=== PATIENT | male | born 2000 | race Caucasian/White ===

== ENCOUNTER 2020-07-17 08:08 | Observation (INO) ==
[2020-07-17] MEDS ORDERED: KETOROLAC TROMETHAMINE 15 MG/ML VIAL IV STA (08:38)
[2020-07-17] MEDS ORDERED: ONDANSETRON INJ 2 MG/ML 2 ML VIAL IV STA (08:38)
--- NOTE | 2020-07-17 08:42 | Emergency Department Note ---
Impression & Plan Acute appendicitis with localized peritonitis ED Provider Note CHIEF COMPLAINT: Abdominal pain, nausea HISTORY OF PRESENTING ILLNESS: This is a 19-year-old male who presents to the emergency department by private vehicle with complaint of diffuse mid abdominal pain and nausea that started this morning about 6:30 AM when he woke up, he states the pain woke him up out of sleep. He states the pain is constant, crampy in nature, centered in the middle of the abdomen but radiates outward to both sides throughout the abdomen, and he rates the pain 8/10. He has not tried any medications for the pain. He has had persistent nausea and feels like he might vomit, but has not vomited. He denies any diarrhea and had a normal bowel movement this morning. He denies any urinary symptoms. He states that he was feeling fine yesterday and did not have any symptoms of abdominal pain or nausea and had a normal appetite yesterday. He denies eating or drinking anything unusual and denies any sick contacts. He notes that he had a CT scan when he was in elementary school that showed that his appendix was not in the normal position, he is concerned he may have appendicitis because of this. He denies any history of abdominal surgeries or intestinal problems. He did test positive for COVID-19 over 3 weeks ago, he states his only symptoms were fever and sore throat for about 1 day and had no other symptoms. He feels that he is fully recovered from this. REVIEW OF SYSTEMS: A complete 10 point review of systems was reviewed with the patient with pertinent positives and negatives as per history of present illness. All else were negative. PAST MEDICAL HISTORY: No significant past medical or surgical history SOCIAL HISTORY: Lives at home, he denies tobacco use, alcohol or recreational drug use ALLERGIES: No known allergies PHYSICAL EXAM: CONSTITUTIONAL: Pleasant and cooperative. Nontoxic-appearing and in no acute distress. Well appearing and well nourished. HEENT: Normocephalic, atraumatic. NECK: Supple, full active range of motion without discomfort. RESPIRATORY: Clear to auscultation bilaterally with no wheezing, crackles, rhonchi or stridor. Equal expansion bilaterally. CARDIOVASCULAR: Regular rate and rhythm with no murmurs, rubs or gallops. Normal peripheral perfusion. No edema. GASTROINTESTINAL: Diffuse tenderness to palpation throughout the abdomen, most tender around the periumbilical region, no rebound tenderness or guarding. The abdomen is soft and nondistended. No palpable masses or HSM. Bowel sounds present in all quadrants. No CVA tenderness bilaterally. MUSCULOSKELETAL: Full range of motion of all joints without discomfort. INTEGUMENTARY: No rash or other significant dermatologic conditions noted. NEUROLOGIC: Alert and oriented X 4 with normal affect. Normal strength and sensation in all 4 extremities. Normal speech. Normal gait observed. ED COURSE AND MEDICAL DECISION MAKING: CC: Patient presenting with complaint of abdominal pain and nausea DIFFERENTIAL DIAGNOSIS: Includes, but not limited to appendicitis, cholecystitis, cholelithiasis, pancreatitis, GERD, gastritis, gastroenteritis, PUD, enteric adenitis, colitis, small bowel obstruction, among others. INTERPRETATION OF LABS: No leukocytosis, no anemia, normal platelets, no significant electrolyte abnormalities, normal renal function, normal liver enzymes and lipase. Urinalysis negative. IMAGING: CT SCAN OF THE ABDOMEN AND PELVIS WITH IV CONTRAST CLINICAL HISTORY: Generalized abdominal pain. Nausea. COMPARISON STUDY: Abdominal CT dated 07/15/2011. TECHNIQUE: Following the IV administration of 93 cc of Optiray 320, CT scan of the abdomen and pelvis is performed from the lung bases to the proximal femora. Images are reviewed in the axial, sagittal, and coronal planes. IV contrast was administered without complication. A dose lowering technique was utilized adhering to the principles of ALARA. CT DOSE: 272.46 mGy.cm FINDINGS: Lung bases: The heart is normal in size and without pericardial effusion. The lung bases are clear. Liver: The contrast-enhanced liver is normal in size, contour, and attenuation. There is no intrahepatic biliary ductal dilatation. The hepatic veins and portal veins are patent. Gallbladder: Unremarkable. Spleen: Normal in size and attenuation. Pancreas: Unremarkable. Adrenal glands: Unremarkable. Kidneys: The contrast enhanced kidneys are normal in size and without hydronephrosis. The kidneys enhance symmetrically. Small peripelvic cysts are noted in the right upper pole. This is similar to previous. Abdominal vasculature: The abdominal aorta is normal in course and caliber. Bowel: The small bowel and colon are normal in course and caliber. The appendix is distended and fluid-filled, measuring 10 mm in diameter. This is best seen on image #334. The appendiceal wall is thickened and hyperemic and there is periappendiceal inflammation and fluid. Findings are consistent with acute appendicitis. There is no organized fluid collection to suggest abscess. Peritoneum: There is no intraperitoneal free air or abdominal ascites. Lymphadenopathy: None. Pelvic viscera: The bladder, prostate, and seminal vesicles are normal in appearance. There is a small one of free fluid in the pelvis. Skeletal structures: No lytic or blastic lesions are seen. IMPRESSION: 1. Findings are consistent with acute appendicitis. 2. There is no evidence of abscess or perforation. 3. A small volume of free fluid in the pelvis is likely reactive. 4. Additional findings as above. MEDICATION RECONCILIATION: I attest that I have personally reviewed the patient's current medication list. INITIAL VITAL SIGNS REVIEW: I reviewed the patient's initial vital signs and interpret them as follows: T: Afebrile; BP: Normotensive; HR: Mildly tachycardic; RR: Within normal limits; Pulse Ox: Within normal limits on room air. MDM SUMMARY: Patient was evaluated at bedside, history and physical exam performed. Patient is alert and oriented, in no acute distress, resting calmly in the stretcher. Afebrile and nontoxic-appearing. Patient does appear to be uncomfortable from pain. He complains of nausea but is not actively vomiting. The abdomen is diffusely tender to palpation throughout, but no acute abdomen. Most tender in the periumbilical region. Orders were placed for labs, UA, IV fluid bolus for hydration as precaution, IV Toradol for pain, IV Zofran for nausea, CT abdomen/pelvis with IV contrast to evaluate for abdominal pain. Patient discussed with Dr. Wren, who agrees with my assessment, plan, and disposition. Labs and imaging reviewed as above, labs are unremarkable, no leukocytosis, renal and liver function normal. No UTI. CT imaging reviewed as above, noting findings consistent with acute appendicitis with no evidence of abscess or perforation. I spoke on the phone with Dr. Bedoya, general surgery, who agrees to evaluate the patient for surgery. Patient reassessed multiple times throughout ED stay, he has remained hemodynamically stable and afebrile and reports his pain is improved after the Toradol. The patient was updated on all results and plan for his probable surgery today, all questions were answered to the best of my ability and the patient was agreeable to this plan. The patient was stable at time of admission/transfer to OR. The chart was completed utilizing [employer] voice recognition software. Grammatical errors, random word insertions, pronoun errors, and incomplete sentences are an occasional consequence of this system due to software limitations, ambient noise, and hardware issues. Any formal questions or concer ns about the content, text, or information contained within the body of this dictation should be directly addressed to the nurse practitioner for clarification. Past Med/Surg History Medical History (Updated 07/17/20 @ 15:07 by DIONICIO Loving) Acute appendicitis with localized peritonitis Social History Smoking Status: Never smoker Preferred Language: Greenlandic Feels Safe at Home: Yes Allergies Allergies Allergy/AdvReac Type Severity Reaction Status Date / Time No Known Allergies Allergy Unverified 07/17/20 09:05 Home Meds Home Medications Medication Instructions Recorded Confirmed No Known Home Medications 07/17/20 07/17/20 Results & Data (ED) Vital Signs Vital Signs - 24 hr 07/17/20 08:11 07/17/20 09:12 07/17/20 11:16 Temperature 36.3 C L Temperature Source Temporal Artery Scan Pulse Rate 101 H Pulse Rate [Finger] 64 Respiratory Rate 18 14 Respiratory Effort / Characteristics Spontaneous Non-Labored Spontaneous Respiratory Depth Normal Normal Respiratory Pattern Regular Blood Pressure 123/70 Blood Pressure [Right Arm] 113/50 L Blood Pressure Mean 87 Blood Pressure Mean [Right Arm] 71 Blood Pressure Position Sitting Blood Pressure Position [Right Arm] Sitting Pulse Oximetry 99 99 99 Oxygen Delivery Method Room Air Room Air Room Air Sepsis Recent Fever Within 48 Hours No Sepsis New/Unexplained Change in Mental Status N/A Sepsis Action Taken by Nursing No Action Required 07/17/20 13:00 07/17/20 13:58 Temperature Temperature Source Pulse Rate Pulse Rate [Finger] 54 L Respiratory Rate 14 Respiratory Effort / Characteristics Respiratory Depth Respiratory Pattern Blood Pressure Blood Pressure [Right Arm] 106/54 L Blood Pressure Mean Blood Pressure Mean [Right Arm] 71 Blood Pressure Position Blood Pressure Position [Right Arm] Pulse Oximetry 99 Oxygen Delivery Method Room Air Room Air Sepsis Recent Fever Within 48 Hours Sepsis New/Unexplained Change in Mental Status Sepsis Action Taken by Nursing Laboratory Data Result diagrams: 07/17/20 09:07 07/17/20 09:07 Lab Results 07/17/20 07/17/20 07/17/20 Range/Units 09:07 09:07 09:07 WBC 8.46 (4.8-10.8) K/uL RBC 5.18 (4.7-6.1) M/uL Hgb 15.2 (14.0-18.0) g/dL Hct 43.7 (42-52) % MCV 84.4 (80-100) fL MCH 29.3 (25-34) pg MCHC 34.8 (32-36) g/dL RDW Std Deviation 37.2 (36.4-46.3) fL RDW Coeff of Bettina 12.2 (11.5-14.5) % Plt Count 183 (130-400) K/uL MPV 11.2 H (7.4-10.4) fL Immature Gran % (Auto) 0.1 % Neut % (Auto) 74.2 % Lymph % (Auto) 15.5 % [place] % (Auto) 9.0 % Eos % (Auto) 0.8 % Baso % (Auto) 0.4 % Neut # (Auto) 6.28 (1.4-6.5) K/uL Lymph # (Auto) 1.31 (1.2-3.4) K/uL [place] # (Auto) 0.76 H (0.11-0.59) K/uL Eos # (Auto) 0.07 (0-0.5) K/uL Baso # (Auto) 0.03 (0-0.2) K/uL Immature Gran # (Auto) 0.01 (0.00-0.02) K/uL Sodium 141 (136-145) mmol/L Potassium 3.9 (3.5-5.1) mmol/L Chloride 106 (98-107) mmol/L Carbon Dioxide 28 (21-32) mmol/L Anion Gap 8.0 (3-11) BUN 13 (7-18) mg/dl Creatinine 0.90 (0.6-1.4) mg/dl Est Cr Clr Drug Dosing 125.1 ml/min Est GFR ( Amer) 143.0 Est GFR (Non-Af Amer) 123.4 BUN/Creatinine Ratio 14.5 (10-20) Glucose 81 (70-99) mg/dl Calcium 9.6 (8.5-10.1) mg/dl Total Bilirubin 0.7 (0.2-1) mg/dl AST 23 (15-37) U/L ALT 21 (12-78) U/L Alkaline Phosphatase 70 (45-117) U/L Total Protein 7.7 (6.4-8.2) gm/dl Albumin 4.4 (3.4-5.0) gm/dl Globulin 3.3 (2.5-4.0) gm/dl Albumin/Globulin Ratio 1.3 (0.9-2) Lipase 97 (73-393) U/L Urine Color Yellow Urine Appearance Clear (Clear) Urine pH 7.0 (4.5-7.5) Ur Specific [place] 1.018 (1.000-1.030) Urine Protein Negative (Negative) Urine Glucose (UA) Negative (Negative) Urine Ketones Negative (Negative) Urine Blood Negative (Negative) Urine Nitrite Negative (Negative) Urine Bilirubin Negative (Negative) Urine Urobilinogen Negative (Negative) Ur Leukocyte Esterase Negative (Negative) Administered Medications Discontinued Medications Sodium Chloride (Nss 1000ml) 1,000 mls @ 999 mls/hr IV .Q1H1M RUTHY Stop: 07/17/20 09:45 Last Infusion: 07/17/20 10:07 Dose: 0 mls/hr Documented by: [id number] Admin: 07/17/20 09:06 Dose: 999 mls/hr Documented by: [id number] Cefazolin Sodium (Ancef 2000mg) 2,000 mg in 15 mls @ 3.75 mls/min IV ONCE ONE Stop: 07/17/20 15:05 Last Admin: 07/17/20 14:50 Dose: 3.75 mls/min Documented by: [id number] Ioversol (Ioversol 100ml) 93 ml IV ONCE ONE Stop: 07/17/20 09:37 Last Admin: 07/17/20 09:36 Dose: 93 ml Documented by: [id number] Ketorolac Tromethamine (Ketorolac Tromethamine 15 Mg/Ml Vial) 15 mg IV NOW STA Stop: 07/17/20 08:39 Last Admin: 07/17/20 09:06 Dose: 15 mg Documented by: [id number] Ondansetron HCl (Ondansetron Inj 2 Mg/Ml 2 Ml Vial) 4 mg IV NOW STA Stop: 07/17/20 08:39 Last Admin: 07/17/20 09:06 Dose: 4 mg Documented by: [id number] Discharge Plan Visit Data Chief Complaint: Abdominal Pain Stated Complaint: ABD PAIN,VOMITING ED Provider: Mishock,Christopher ED Midlevel Provider: Cheyenne Mchugh Discharge Problem: Acute appendicitis with localized peritonitis Patient Disposition: Admitted As Inpatient Condition: Good Discharge Instructions Interventions: ED Discharge Assessment Last Done: 07/17/20 13:58 Discharge Problem: Acute appendicitis with localized peritonitis Qualifiers: Appendicitis gangrene presence: unspecified whether gangrene present Appendicitis perforation presence: without perforation Appendicitis abscess presence: without abscess Qualified Code(s): K35.30 - Acute appendicitis with localized peritonitis, without perforation or gangrene
[2020-07-17] MEDS ORDERED: SODIUM CHLORIDE 0.9% 1000ML 1,000 ML IV SCH (08:45)
[2020-07-17 09:18] LABS: Appearance Urine Clear (Clear); Basophils # (auto) 0.03 K/uL (0-0.2); Basophils % (auto) 0.4 %; Bilirubin Urine Negative (Negative); Blood Urine Negative (Negative); Color Urine Yellow; Eosinophils # (auto) 0.07 K/uL (0-0.5); Eosinophils % (auto) 0.8 %; Glucose Urine UA Negative (Negative); Hematocrit (blood only) 43.7 % (42-52); Hemoglobin 15.2 g/dL (14.0-18.0); Immature Granulocytes # (auto) 0.01 K/uL (0.00-0.02); Immature Granulocytes % (auto) 0.1 %; Ketones Urine Negative (Negative); Leukocyte Esterase Urine Negative (Negative); Lymphocytes # (auto) 1.31 K/uL (1.2-3.4); Lymphocytes % (auto) 15.5 %; Mean Corpuscular Hemoglobin 29.3 pg (25-34); Mean Corpuscular Hgb Conc 34.8 g/dL (32-36); Mean Corpuscular Volume 84.4 fL (80-100); Mean Platelet Volume 11.2 fL (7.4-10.4); Monocytes # (auto) 0.76 K/uL (0.11-0.59); Neutrophils # (auto) 6.28 K/uL (1.4-6.5); Neutrophils % (auto) 74.2 %; Nitrite Urine Negative (Negative); Platelet Count 183 K/uL (130-400); Protein Urine Negative (Negative); RDW Coefficient of Variation 12.2 % (11.5-14.5); RDW Standard Deviation 37.2 fL (36.4-46.3); Red Blood Count 5.18 M/uL (4.7-6.1); Specific Gravity Urine 1.018 (1.000-1.030); Urobilinogen Urine Negative (Negative); White Blood Count 8.46 K/uL (4.8-10.8)
[2020-07-17 09:34] LABS: Albumin Level 4.4 gm/dl (3.4-5.0); BUN Creatinine Ratio 14.5 (10-20); Calcium 9.6 mg/dl (8.5-10.1); Creatinine Clr Calc Pharmacy 125.1 ml/min; Est GFR (Non-African American) 123.4; Potassium 3.9 mmol/L (3.5-5.1)
[2020-07-17] MEDS ORDERED: IOVERSOL 100ml IV ONE (09:36)
[2020-07-17 09:37] LABS: Albumin Globulin Ratio 1.3 (0.9-2); Bilirubin,Total 0.7 mg/dl (0.2-1); Globulin 3.3 gm/dl (2.5-4.0); Total Protein 7.7 gm/dl (6.4-8.2)
--- NOTE | 2020-07-17 11:06 | CT Scan Report ---
CT SCAN OF THE ABDOMEN AND PELVIS WITH IV CONTRAST CLINICAL HISTORY: Generalized abdominal pain. Nausea. COMPARISON STUDY: Abdominal CT dated 07/15/2011. TECHNIQUE: Following the IV administration of 93 cc of Optiray 320, CT scan of the abdomen and pelvi s is performed from the lung bases to the proximal femora. Images are reviewed in the axial, sagittal , and coronal planes. IV contrast was administered without complication. A dose lowering technique wa s utilized adhering to the principles of ALARA. CT DOSE: 272.46 mGy.cm FINDINGS: Lung bases: The heart is normal in size and without pericardial effusion. The lung bases are clear. Liver: The contrast-enhanced liver is normal in size, contour, and attenuation. There is no intrahepa tic biliary ductal dilatation. The hepatic veins and portal veins are patent. Gallbladder: Unremarkable. Spleen: Normal in size and attenuation. Pancreas: Unremarkable. Adrenal glands: Unremarkable. Kidneys: The contrast enhanced kidneys are normal in size and without hydronephrosis. The kidneys enh ance symmetrically. Small peripelvic cysts are noted in the right upper pole. This is similar to prev ious. Abdominal vasculature: The abdominal aorta is normal in course and caliber. Bowel: The small bowel and colon are normal in course and caliber. The appendix is distended and flui d-filled, measuring 10 mm in diameter. This is best seen on image #334. The appendiceal wall is thick ened and hyperemic and there is periappendiceal inflammation and fluid. Findings are consistent with acute appendicitis. There is no organized fluid collection to suggest abscess. Peritoneum: There is no intraperitoneal free air or abdominal ascites. Lymphadenopathy: None. Pelvic viscera: The bladder, prostate, and seminal vesicles are normal in appearance. There is a smal l one of free fluid in the pelvis. Skeletal structures: No lytic or blastic lesions are seen. IMPRESSION: 1. Findings are consistent with acute appendicitis. 2. There is no evidence of abscess or perforation. 3. A small volume of free fluid in the pelvis is likely reactive. 4. Additional findings as above. ACT 112: Positive. There are findings on this exam that require communication between the performing entity and the patient following Patient Test Result Information Act ([place] Act 112) guidelines. Electronically signed by: Vernon Estrella M.D. 07/17/2020 11:05 AM
[2020-07-17] MEDS ORDERED: MIDAZOLAM HCL 1 MG/ML 2ML VIAL ONE (13:59)
[2020-07-17] MEDS ORDERED: fentaNYL citrate 100 MCG/2 ML VIAL ONE (13:59)
[2020-07-17] MEDS ORDERED: PROPOFOL IV EMULSION 10 MG/ML 20 ML VIAL IV ONE (13:59)
[2020-07-17] MEDS ORDERED: LIDOCAINE HCL 2% 2 ML VIAL/AMP(20MG/ML) INFIL ONE (13:59)
[2020-07-17] MEDS ORDERED: ONDANSETRON INJ 2 MG/ML 2 ML VIAL ONE (13:59)
[2020-07-17] MEDS ORDERED: ROCURONIUM BROMIDE 10 MG/ML 5 ML VIAL IV ONE (13:59)
--- NOTE | 2020-07-17 14:08 | Anesthesiology Consultation ---
Date of Service July 17, 2020 Patient tested positive for Covid om 06/25/20, mild sx. Currently asymptomatic Assessment & Plan (1) Encounter for pre-operative examination: History Surgery Operation Date: 07/17/20 15:00 Proposed Procedures p Laparoscopic Appendectomy - Paulie Bedoya MD Height/Weight Height: 6 ft Weight: 67 kg Allergies Allergy/AdvReac Type Severity Reaction Status Date / Time No Known Allergies Allergy Unverified 07/17/20 09:05 Medications Home Medications Medication Instructions Recorded Confirmed Last Taken No Known Home Medications 07/17/20 07/17/20 Unknown Social History Smoking Status: Never smoker Physical Exam Vital Signs Last Vital Signs Temp 36.3 C L 07/17/20 08:11 Pulse 54 L 07/17/20 13:00 Resp 14 07/17/20 13:00 BP 106/54 L 07/17/20 13:00 Pulse Ox 99 07/17/20 13:00 Testing Laboratory Results 07/17/20 09:07 07/17/20 09:07 Urine Color Yellow 07/17/20 09:07 Urine Appearance Clear (Clear) 07/17/20 09:07 Urine pH 7.0 (4.5-7.5) 07/17/20 09:07 Ur Specific [place] 1.018 (1.000-1.030) 07/17/20 09:07 Urine Protein Negative (Negative) 07/17/20 09:07 Urine Glucose (UA) Negative (Negative) 07/17/20 09:07 Urine Ketones Negative (Negative) 07/17/20 09:07 Urine Nitrite Negative (Negative) 07/17/20 09:07 Ur Leukocyte Esterase Negative (Negative) 07/17/20 09:07
--- NOTE | 2020-07-17 14:14 | History & Physical Report ---
Date of Service July 17, 2020 Assessment & Plan (1) Acute appendicitis with localized peritonitis: Admission and Anticipated Discharge Date Admission Date: IVF IV abx to OR for lap appendectomy History of Present Illness Primary Care Provider: NO PCP This is a 19-year-old male who presents to the emergency department with diffuse mid abdominal pain and nausea that started this morning. The pain is constant, crampy in nature, centered in the middle of the abdomen but radiates outward to both sides throughout the abdomen, and he rates the pain 8/10. He has had persistent nausea and feels like he might vomit, but has not vomited. He denies any diarrhea and had a normal bowel movement this morning. He denies any urinary symptoms. He states that he was feeling fine yesterday and did not have any symptoms of abdominal pain or nausea and had a normal appetite yesterday. Allergies Allergy/AdvReac Type Severity Reaction Status Date / Time No Known Allergies Allergy Unverified 07/17/20 09:05 Home Medications Medication Instructions Recorded Confirmed Type No Known Home Medications 07/17/20 07/17/20 History Past Med/Surg History Medical History (Updated 07/17/20 @ 14:15 by Paulie Bedoya MD) Acute appendicitis with localized peritonitis Social History Smoking Status: Never smoker Preferred Language: Uzbek Feels Safe at Home: Yes Review of Systems no fever and no chills no cough and no dyspnea no chest pain + abdominal pain and + nausea; no vomiting and no change in bowel habits no dysuria no back pain no rash and no yellowing of the skin no localized weakness and no generalized weakness no depression Physical Exam Constitutional: well developed and well nourished Eyes: PERRL, conjunctivae normal, anicteric sclerae Neck: trachea midline Respiratory: normal respiratory effort, lungs clear to auscultation Cardiovascular: RRR, no murmur, no edema Gastrointestinal (Abdomen): Inspection/Auscultation: abdomen normal to inspection and normal bowel sounds; abdomen not distended Percussion/Palpation: + abdomen tender and abdomen soft; no guarding and abdomen not rigid Musculoskeletal: Head/Neck/Chest: normocephalic and head atraumatic Skin: no rashes, warm and dry Psychiatric: Orientation: alert and oriented x 3 ASA Classification ASA ASA1E Results & Data ([facility]) Vital Signs (Past 12 Hours) Vital Signs Temp Pulse Pulse Resp BP BP Pulse Ox 07/17/20 13:00 54 L 14 106/54 L 99 07/17/20 11:16 64 14 113/50 L 99 07/17/20 09:12 99 07/17/20 08:11 36.3 C L 101 H 18 123/[address] SCAN OF THE ABDOMEN AND PELVIS WITH IV CONTRAST CLINICAL HISTORY: Generalized abdominal pain. Nausea. COMPARISON STUDY: Abdominal CT dated 07/15/2011. TECHNIQUE: Following the IV administration of 93 cc of Optiray 320, CT scan of the abdomen and pelvis is performed from the lung bases to the proximal femora. Images are reviewed in the axial, sagittal, and coronal planes. IV contrast was administered without complication. A dose lowering technique was utilized adhering to the principles of ALARA. CT DOSE: 272.46 mGy.cm FINDINGS: Lung bases: The heart is normal in size and without pericardial effusion. The lung bases are clear. Liver: The contrast-enhanced liver is normal in size, contour, and attenuation. There is no intrahepatic biliary ductal dilatation. The hepatic veins and portal veins are patent. Gallbladder: Unremarkable. Spleen: Normal in size and attenuation. Pancreas: Unremarkable. Adrenal glands: Unremarkable. Kidneys: The contrast enhanced kidneys are normal in size and without hydronephrosis. The kidneys enhance symmetrically. Small peripelvic cysts are noted in the right upper pole. This is similar to previous. Abdominal vasculature: The abdominal aorta is normal in course and caliber. Bowel: The small bowel and colon are normal in course and caliber. The appendix is distended and fluid-filled, measuring 10 mm in diameter. This is best seen on image #334. The appendiceal wall is thickened and hyperemic and there is periappendiceal inflammation and fluid. Findings are consistent with acute appendicitis. There is no organized fluid collection to suggest abscess. Peritoneum: There is no intraperitoneal free air or abdominal ascites. Lymphadenopathy: None. Pelvic viscera: The bladder, prostate, and seminal vesicles are normal in appearance. There is a small one of free fluid in the pelvis. Skeletal structures: No lytic or blastic lesions are seen. IMPRESSION: 1. Findings are consistent with acute appendicitis. 2. There is no evidence of abscess or perforation. 3. A small volume of free fluid in the pelvis is likely reactive. 4. Additional findings as above.
[2020-07-17] MEDS ORDERED: MoRPHine SULFATE 4 MG/ML 1 ML CARP\\VIAL IV PRN (14:15)
[2020-07-17] MEDS ORDERED: ONDANSETRON INJ 2 MG/ML 2 ML VIAL IV PRN ×2 (14:15→14:25)
[2020-07-17] MEDS ORDERED: MoRPHine SULFATE 2 MG/ML CARP IV PRN (14:15)
[2020-07-17] MEDS ORDERED: oxyCODONE/ACETAMINOPHEN 5mg/325mg TAB PO PRN ×2 (14:15)
[2020-07-17] MEDS ORDERED: PROMETHAZINE HCL 25 MG in SODIUM CHLORIDE 0.9% 50 ML IV PRN (14:15)
[2020-07-17] MEDS ORDERED: fentaNYL citrate 100 MCG/2 ML VIAL IV PRN (14:25)
[2020-07-17] MEDS ORDERED: ATROPINE SULFATE 0.1 MG/ML 10ML SYR IV PRN (14:25)
[2020-07-17] MEDS ORDERED: ePHEDrine sulfate 50 MG/ML AMP IV PRN (14:25)
[2020-07-17] MEDS ORDERED: HYDROmorphone INJ 1 MG/ML SYRINGE IV PRN (14:25)
[2020-07-17] MEDS ORDERED: SCOPOLAMINE 1.5 MG TDSY TD ONE (14:30)
[2020-07-17] MEDS ORDERED: BUPIVACAINE/EPINEPHRINE 0.5% MPF 1:200,000 30 ML VIAL ONE (14:33)
[2020-07-17] MEDS ORDERED: ceFAZolin 2000MG 2,000 MG/15 ML SYR IV ONE (15:02)
[2020-07-17] MEDS ORDERED: GLYCOPYRROLATE 0.2 MG/ML VIAL ONE (15:17)
[2020-07-17] MEDS ORDERED: NEOSTIGMINE METHYLSULFATE 5 MG/5 ML SYR ONE (15:17)
--- NOTE | 2020-07-17 15:21 | Post Operative Brief Note ---
Immediate Post Op Note v1 Date of Surgery July 17, 2020 Pre & Post Diagnosis Operation Date: 07/17/20 15:00 Pre-Op Diagnosis: Acute appendicitis with localized peritonitis Post-Op Diagnosis: Acute appendicitis with localized peritonitis I identified the patient and participated in the time-out.: Yes Procedure Operation Date: 07/17/20 15:00 Actual Procedures p Laparoscopic Appendectomy(Not Applicable) - Paulie Bedoya MD Surgeon Paulie Bedoya MD Coil Former none Estimated Blood Loss 5 Findings Consistent with Post-Op Diagnosis
[2020-07-17] MEDS: LACTATED RINGER'S 1,000 ML IV SCH (15:50)
--- NOTE | 2020-07-17 15:57 | Anesthesiology Progress Note ---
Date of Service July 17, 2020 Anesthesia Post Procedure Vital Signs Vital Signs: Temp Pulse Pulse Pulse Resp BP BP 07/17/20 15:50 71 12 107/54 L 07/17/20 15:40 78 13 110/52 L 07/17/20 15:31 36.5 C 73 15 110/47 L 07/17/20 13:00 54 L 14 07/17/20 11:16 64 14 07/17/20 09:12 07/17/20 08:11 36.3 C L 101 H 18 123/70 BP Pulse Ox 07/17/20 15:50 98 07/17/20 15:40 100 07/17/20 15:31 100 07/17/20 13:00 106/54 L 99 07/17/20 11:16 113/50 L 99 07/17/20 09:12 99 07/17/20 08:11 99 Pain Intensity Abdomen: Pain Intensity: 2 Transfer of Care Handoff Completed per policy Notes Mental Status: alert / awake / arousable Patient Amnestic to Procedure: Yes Nausea / Vomiting: adequately controlled Pain: adequately controlled Airway Patency, RR, SpO2: stable & adequate BP & HR: stable & adequate Hydration State: stable & adequate Anesthetic Complications: no major complications apparent and Pt Satisfied with anesthetic care
[2020-07-17] MEDS: ACETAMINOPHEN 325 MG TAB PO PRN (21:14)
[2020-07-17] MEDS: cefOXitin 2,000 MG in DEXTROSE 5% 50 ML IV SCH (21:14)
--- NOTE | 2020-07-18 01:01 | Operative Report (OR) ---
DATE OF OPERATION: 07/17/2020 PREOPERATIVE DIAGNOSIS: Acute appendicitis. POSTOPERATIVE DIAGNOSIS: Acute appendicitis. PROCEDURE PERFORMED: Laparoscopic appendectomy. SURGEON: Paulie Bedoya MD ADHESIVE SPRAYER: None. ANESTHESIA: General endotracheal with 0.5% Marcaine with epinephrine local. ESTIMATED BLOOD LOSS: 5 mL DRAINS: None. COMPLICATIONS: None. SPECIMENS: Appendix sent for pathologic evaluation. INDICATION FOR PROCEDURE: This is a 19-year-old male admitted through the ED with acute abdominal pain. He underwent a workup, which included a CT scan showing acute appendicitis. We talked in detail about the risks, but recommended a laparoscopic appendectomy. DESCRIPTION OF PROCEDURE: The patient was taken to the OR and underwent excellent general endotracheal anesthesia. His abdomen was prepped and draped in normal sterile fashion. Transverse supraumbilical incision was made and with tension on his anterior abdominal wall, Veress needle was inserted. Good pneumoperitoneum was then achieved to 15 mmHg pressure. A visualized 11 port was then placed supraumbilically. A size 5 suprapubic, a 5 right upper quadrant, and a 12 left lower quadrant port were also placed in a normal fashion after making the incisions. The patient was placed in head down and rolled to the left. His cecum was identified and grasped. His appendix was obviously inflamed and stuck down a little bit to his right pelvic brim. A Harmonic scalpel was used to take down the adhesions and then take down the mesoappendix with minimal bleeding. This was taken down to the base of the appendix. A FILOMENA 60 pizarro load was then used to transect the appendix at its base. The appendix was then removed with an Endobag through the left lower quadrant incision. Port was replaced, the appendix was sent for pathologic evaluation. The abdomen was then irrigated out with 500 mL of saline. There was no bleeding on the staple line. No other abnormalities were noted including normal terminal ileum. Once the irrigant was suctioned out, the ports were then removed, the pneumoperitoneum was decompressed. A 0 Vicryl was used to close the fascial defects at the 11 and 12 ports, interrupted Vicryl was used to close the skin. A 0.5% Marcaine with epinephrine local was used to create local field blocks. Steri-Strips and benzoin were used to reinforce the incisions. Sterile dressings were applied. The patient tolerated the procedure without any complications and will be sent to the postop recovery for a period of observation and then be sent to floor for his care. I attest to the content of the Intraoperative Record and any orders documented therein. Any exception s are noted below.
[2020-07-18] MEDS: ACETAMINOPHEN 325 MG TAB PO PRN ×2 (05:31→11:51)
[2020-07-18] MEDS: cefOXitin 2,000 MG in DEXTROSE 5% 50 ML IV SCH ×2 (05:31→13:48)
[2020-07-18] MEDS: LACTATED RINGER'S 1,000 ML IV SCH (11:51)
--- NOTE | 2020-07-18 12:05 | Discharge Summary ---
Date of Service July 18, 2020 Admission HPI Per Admitting Provider This is a 19-year-old male who presents to the emergency department with diffuse mid abdominal pain and nausea that started this morning. The pain is constant, crampy in nature, centered in the middle of the abdomen but radiates outward to both sides throughout the abdomen, and he rates the pain 8/10. He has had persistent nausea and feels like he might vomit, but has not vomited. He denies any diarrhea and had a normal bowel movement this morning. He denies any urinary symptoms. He states that he was feeling fine yesterday and did not have any symptoms of abdominal pain or nausea and had a normal appetite yesterday. Principal Diagnosis Acute appendicitis Discharge Exam Constitutional WD/WN, vitals as above Respiratory normal respiratory effort; no respiratory distress and no labored breathing Gastrointestinal (Abdomen) Inspection/Auscultation: abdomen normal to inspection and + abdominal surgical incision (covered with dry dressings); abdomen not distended Percussion/Palpation: + abdomen tender (at incision sites, appropriate postop) and abdomen soft; no guarding and abdomen not rigid Skin no rashes, warm and dry Psychiatric A+Ox3, euthymic affect Discharge Data Allergies Allergy/AdvReac Type Severity Reaction Status Date / Time No Known Allergies Allergy Unverified 07/17/20 09:05 Consultations 07/17/20 11:21 ED Decision to Admit Stat Procedures Performed Operation Date: 07/17/20 15:00 Actual Procedures p Laparoscopic Appendectomy(Not Applicable) - Paulie Bedoya MD Ordered Studies 07/17/20 08:38 CT abd pelvis IV con only Stat Hospital Course (1) Acute appendicitis with localized peritonitis: Patient was taken to operating room for laparoscopic appendectomy by Dr. Bedoya. Patient found to have acute appendicitis without perforation or abs cess. Patient tolerated procedure without difficulties. Transferred to med/surg for postop care. IV Cefoxitin was continued for postop antibiotic dose, diet advanced as tolerated, po Percocet and Tylenol prn pain, IV Zofran prn nausea. POD #1 vitals stable, afebrile, postop pain moderate but controlled, no nausea or vomiting. Has not ambulated hallway. Urinating without difficulty. Advised to ambulate hallway. Continue pain management as needed. Patient was re-evaluated in afternoon and discharged home in stable condition. Total Time Total Time Spent Total Time Spent (In Minutes): 30 Total Time Includes: Examination of the Patient, Discharge Planning and Medication Reconciliation Discharge Plan Discharge Items Patient Disposition: Home - Self-Care Reason For Visit: APPENDICITIS Discharge Diagnosis: Acute appendicitis Condition on Discharge: Good Activity: Per Instructions section Non-emergency contact: Surgeon Call non-emergency contact if: your symptoms worsen, your pain is not controlled, your pain is worsening, your pain is concerning for you, you have a fever, your temperature is above 101, your wound has increased redness, your wound has increased drainage and your wound pain has increased Follow-up/Referrals: PCP,NO [Primary Care Provider] - Diet: Regular Addtl Attending Provider Instructions: General Surgery discharge instructions: - no heavy lifting over 20 pounds for 4 weeks - no strenuous activity until cleared by surgeon - no submerging incisions underwater for 2 weeks (no bathing ,swimming, or hot tubs) - no driving while taking narcotic pain medication or until you are pain free - You may shower tonight, remove outer dressings and let water run over incision and pat dry - Leave steri strips on incisions for 7 days and remove. They may fall off on their own that is okay - May take extra strength Tylenol and Ibuprofen as needed for mild pain - 650 mg of Tylenol every 6 hours as needed - 600 mg of Ibuprofen every 6 hours as needed (take with food) - Percocet as needed for severe pain take as directed - Follow-up surgical office in 2 weeks, please call office at [phone] to make an appointment Pending Studies at Discharge: Yes Stand-Alone Forms: [email or web address], Smoking Cessation Medications and DC Order Prescriptions: New oxycodone-acetaminophen [Percocet] 5-325 mg tablet 1 tab PO Q6H PRN (Reason: pain) Qty: 10 RF: 0 No Action No Known Home Medications RF: 0 Discharge Orders: Discharge Order (Routine); Ordered 07/18/20 Ordered By: Mary Ann Savage Admission Data Admit Date/Time: 07/17/20 14:16 Attending Provider: Paulie Bedoya Admit Provider: Paulie Bedoya Primary Care Provider: PCP,NO Other Providers: Paulie Bedoya
== END 2020-07-18 14:45 | disposition home or self-care (01) ==
LOC: ED 08:08 → ASU 13:54 → 3W 13:54
DX: K35.30 Acute appendicitis with localized peritonitis, without perforation or gangrene; Z86.16 Personal history of COVID-19